=== PATIENT | female | born 1975 | race Hispanic/Latino ===

== ENCOUNTER 2016-05-07 16:44 | Emergency (ER) | payer BC ==
[~2016-05-07] VITALS: Ht 165.1 cm; Wt 74.0 kg
[~2016-05-07 16:44] MED LIST: CREON 61 CAPSULE PO; LEVOFLOXACIN500 MG PO; MOTRIN800 MG PO; OXECTA5 MG PO; OXYCODONE HCL5 M1 PO; PANTOPRAZOLE SO40 MG PO; SUCRALFATE1 GM/10 ML PO
[2016-05-07 19:34] LABS: INFLUENZA A VIRAL ANTIGEN POSITIVE; INFLUENZA B VIRAL ANTIGEN NEGATIVE
[2016-05-07] MEDS ORDERED: HYCODAN SYRUP480 ML PO (19:50)
[2016-05-07] MEDS ORDERED: PROAIR HFA8.5 GM IH (19:50)
[2016-05-07] MEDS ORDERED: MOTRIN800 MG PO (19:50)
[2016-05-07 20:08] VITALS: BP 117/79
== END 2016-05-07 20:09 | disposition home or self-care (01) ==
LOC: EME 16:44
PROVIDERS: Nurse Practitioner Family
DX: J10.1 Influenza due to other identified influenza virus with other respiratory manifestations (principal); R50.9 Fever, unspecified
CPT/HCPCS: 71020; 87502; 94640; 99281; 99283; J7512